=== PATIENT | female | born 1955 ===

== ENCOUNTER 2017-10-03 09:51 | Day surgery (SDC) | payer MEDICAID ==
[2017-10-03 10:23] VITALS: BMI 25.7
[2017-10-03] MEDS ORDERED: Lactated Ringer's 1,000 ML IV ONE (12:10)
[2017-10-03] MEDS ORDERED: Propofol 10 mg/ml Inj (20 ML) ONE (12:12)
[2017-10-03 13:36] VITALS: TEMP 98
[2017-10-03 14:05] VITALS: BP 158/78; PULSE 51; RESP 18; O2SAT 100
== END 2017-10-03 14:03 | disposition home or self-care (01) ==
LOC: C.ENDO 09:51
PROVIDERS: ATTEND Internal Medicine Gastroenterology
DX: K29.50 Unspecified chronic gastritis without bleeding (principal); Z12.11 Encounter for screening for malignant neoplasm of colon; K31.89 Other diseases of stomach and duodenum; D12.2 Benign neoplasm of ascending colon; K64.0 First degree hemorrhoids
CPT/HCPCS: 43239; 45380; 45385; 88305; 88313; 88342; J2001; J2704; J3010; J7120

== ENCOUNTER 2017-10-08 12:41 | Emergency (ER) | payer MEDICAID ==
[2017-10-08 12:41] VITALS: BMI 25.7
[2017-10-08 14:46] LABS: BASO % 0.6 % (0.0-2.0); EOS % 0.4 % (0.0-4.0); HEMOGLOBIN 14.4 g/dL (11.0-16.0); LYMPH # 2.6 K/uL (1.0-4.3); LYMPH % 37.4 % (20.0-40.0); MEAN CELL VOLUME 89.4 fL (81.0-99.0); MEAN CORPUSCULAR HEMOGLOBIN 30.6 pg (27.0-31.0); MEAN CORPUSCULAR HGB CONC 34.2 g/dL (33.0-37.0); MEAN PLATELET VOLUME 9.8 fL (7.2-11.7); MONO # 0.6 K/uL (0.0-0.8); NEUT # 3.7 K/uL (1.8-7.0); NEUT % 53.6 % (50.0-75.0); NRBC % 0.1 % (0.0-2.0); RBC 4.7 Mil/uL (3.80-5.20); RED CELL DISTRIBUTION WIDTH 13.6 % (11.5-14.5)
--- NOTE | 2017-10-08 14:48 | CT ---
PROCEDURE: CT HEAD WITHOUT CONTRAST. HISTORY: headache, elevated BP COMPARISON: None available. TECHNIQUE: Axial computed tomography images were obtained through the head/brain without intravenous contrast. Radiation dose: Total exam DLP = 959.98 mGy-cm. This CT exam was performed using one or more of the following dose reduction techniques: Automated exposure control, adjustment of the mA and/or kV according to patient size, and/or use of iterative reconstruction technique. FINDINGS: HEMORRHAGE: No intracranial hemorrhage. BRAIN: No mass effect or edema. The whitehead-white matter differentiation appears intact. Please note that MRI with diffusion imaging is more sensitive in the detection of acute ischemic event. VENTRICLES: No hydrocephalus. CALVARIUM: Unremarkable. PARANASAL SINUSES: Unremarkable as visualized. No significant inflammatory changes. MASTOID AIR CELLS: Unremarkable as visualized. No inflammatory changes. OTHER FINDINGS: None. IMPRESSION: No acute intracranial pathology identified.
--- NOTE | 2017-10-08 14:53 | RAD ---
PROCEDURE: CHEST RADIOGRAPH, 1 VIEW HISTORY: CP COMPARISON: No prior study available for comparison. FINDINGS: LUNGS: Mild bibasilar atelectasis left greater than right. PLEURA: No pneumothorax or pleural fluid seen. CARDIOVASCULAR: Normal. OSSEOUS STRUCTURES: No significant abnormalities. VISUALIZED UPPER ABDOMEN: Normal. OTHER FINDINGS: None. IMPRESSION: Mild bibasilar atelectasis left.
[2017-10-08 14:55] LABS: INR 1.1; PROTHROMBIN TIME 11.8 SECONDS (9.7-12.2)
--- NOTE | 2017-10-08 14:56 | C.PDOC ---
History Of Present Illness 61-year-old female, presents to the emergency department with complaints of chest pressure and headache. Patient recently started seeing new doctor, who found her blood pressure to be elevated but did not start on any meds. 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 Denies nausea/vomiting, dizziness, shortness of breath, neck pain, trauma/injury or any other associated symptoms. No other complaints at this time. Time Seen by Provider: 10/08/17 13:10 Chief Complaint (Nursing): High Blood Pressure History Per: Patient History/Exam Limitations: no limitations Current Symptoms Are (Timing): Still Present Past Medical History Reviewed: Historical Data, Nursing Documentation, Vital Signs Vital Signs: Last Vital Signs Temp 98.1 F 10/08/17 13:05 Pulse 68 10/08/17 15:43 Resp 21 10/08/17 15:43 BP 140/70 10/08/17 15:43 Pulse Ox 97 10/08/17 15:48 - Medical History PMH: Arthritis (MILD AND GENERALIZED), Gastritis, HTN, Kidney Stones, Chronic Kidney Disease Denies: Colonic Polyps, Fractures, Seizures, Sleep Apnea, TIA Surgical History: Endoscopy, Family History: States: No Known Family Hx - Social History Hx Alcohol Use: No Hx Substance Use: No Review Of Systems Except As Marked, All Systems Reviewed And Found Negative. Constitutional: Negative for: Fever Cardiovascular: Negative for: Chest Pain, Palpitations, Edema, Light Headedness Respiratory: Negative for: Shortness of Breath Gastrointestinal: Negative for: Nausea, Vomiting Musculoskeletal: Negative for: Neck Pain, Back Pain Skin: Negative for: Rash Neurological: Positive for: Headache. Negative for: Weakness, Numbness, Dizziness Physical Exam - Physical Exam Appears: Non-toxic, No Acute Distress Skin: Warm, Dry, No Rash Head: Normacephalic Eye(s): bilateral: PERRL Nose: Normal Oral Mucosa: Moist Lips: Normal Appearing Neck: Normal ROM Chest: Symmetrical Cardiovascular: Rhythm Regular, No Murmur Respiratory: Normal Breath Sounds, No Accessory Muscle Use Extremity: Normal ROM, No Deformity, No Swelling Neurological/Psych: Oriented x3, Normal Speech ED Course And Treatment - Laboratory Results Result Diagrams: 10/08/17 14:41 10/08/17 14:41 ECG: Interpreted By Me, Viewed By Me ECG Rhythm: Sinus Rhythm, R BBB Rate From EC O2 Sat by Pulse Oximetry: 97 (RA) Pulse Ox Interpretation: Normal - Other Rad CXR X-Ray: Viewed By Me, Read By Radiologist Interpretation: Accession No. : [id number]. Patient Name / ID : SHAHAB ADKINS / [id number]. Exam Date : 10/08/2017 14:15:08 ( Approved ). Study Comment : Sex / Age : F / 61Y. Creator : Ugo Kennedy MD. Dictator : Ugo Kennedy MD. Ferryboat Operator : Plans Examiner : Ugo Kennedy MD. Approver2 : Report Date : 10/08/2017 14:52:00. My Comment : . PROCEDURE: CHEST RADIOGRAPH, 1 VIEW. HISTORY: CP. COMPARISON: No prior study available for comparison. FINDINGS: LUNGS: Mild bibasilar atelectasis left greater than right. PLEURA: No pneumothorax or pleural fluid seen. CARDIOVASCULAR: Normal. OSSEOUS STRUCTURES: No significant abnormalities. VISUALIZED UPPER ABDOMEN: Normal. OTHER FINDINGS: None. IMPRESSION: Mild bibasilar atelectasis left. - CT Scan/US CT HEAD Other Rad Studies (CT/US): Read By Radiologist, Radiology Report Reviewed CT/US Interpretation: Accession No. : [id number]. Patient Name / ID : SHAHAB ADKINS / [id number]. Exam Date : 10/08/2017 14:34:18 ( Approved ). Study Comment : Sex / Age : F / 61Y. Creator : Cait Manzo MD. Dictator : Cait Manzo MD. Ferryboat Operator : Plans Examiner : Cait Manzo MD. Approver2 : Report Date : 10/08/2017 14:46:16. My Comment : . PROCEDURE: CT HEAD WITHOUT CONTRAST. HISTORY: headache, elevated BP. COMPARISON: None available. TECHNIQUE: Axial computed tomography images were obtained through the head/brain without intravenous contrast. Radiation dose: Total exam DLP = 959.98 mGy-cm. This CT exam was performed using one or more of the following dose reduction techniques: Automated exposure control, adjustment of the mA and/or kV according to patient size, and/or use of iterative reconstruction technique. FINDINGS: HEMORRHAGE: No intracranial hemorrhage. BRAIN: No mass effect or edema. The whitehead-white matter differentiation appears intact. Please note that MRI with diffusion imaging is more sensitive in the detection of acute ischemic event. VENTRICLES: No hydrocephalus. CALVARIUM: Unremarkable. PARANASAL SINUSES: Unremarkable as visualized. No significant inflammatory changes. MASTOID AIR CELLS: Unremarkable as visualized. No inflammatory changes. OTHER FINDINGS: None. IMPRESSION: No acute intracranial pathology identified. Progress Note: Case was d/w who accepted patient to [facility] for observation. Medical Decision Making Medical Decision Making: Plan: * CT Head * EKG * Labs * Chest X-Ray * Hydralazine, Aspirin * UA * Reassess and Disposition Disposition - Disposition Disposition: HOSPITALIZED Disposition Time: 15:46 Condition: FAIR - Clinical Impression Clinical Impression: Hypertension, Headache, Chest pressure - Scribe Statement The provider has reviewed the documentation as recorded by the Scribe (Juan Miguel Pop) All medical record entries made by the Scribe were at my direction and personally dictated by me. I have reviewed the chart and agree that the record accurately reflects my personal performance of the history, physical exam, medical decision making, and the department course for this patient. I have also personally directed, reviewed, and agree with the discharge instructions and disposition. Decision To Admit - Pt Status Changed To: Hospital Disposition Of: Observation - . Bed Request Type: Telemetry Admitting Physician: Angelo De León Patient Diagnosis: Hypertension, Headache, Chest pressure
[2017-10-08 15:03] LABS: ALB/GLOB RATIO 1.1 (1.0-2.1); ALT/SGPT 61 U/L (9-52); AST/SGOT 44 U/L (14-36); BLOOD UREA NITROGEN 10 mg/dL (7-17); CALCIUM 8.9 mg/dl (8.6-10.4); GFR AFRICAN-AMERICAN > 60; GFR NON-AFRICAN AMERICAN > 60
[2017-10-08 15:13] LABS: CK-MB 0.36 ng/mL (0.0-3.38)
[2017-10-08 15:22] LABS: URINE AMORPHOUS SEDIMENT RARE /ul (<OCC); URINE BACTERIA RARE (<OCC); URINE BILIRUBIN NEGATIVE (NEGATIVE); URINE BLOOD NEGATIVE (NEGATIVE); URINE CLARITY Hazy (Clear); URINE COLOR Red (YELLOW); URINE GLUCOSE (UA) 2+ mg/dL (Normal); URINE LEUKOCYTE ESTERASE TRACE Leu/uL (Negative); URINE NITRATE NEGATIVE (NEGATIVE); URINE PROTEIN NEGATIVE (NEGATIVE); URINE UROBILINOGEN NORMAL mg/dL (0.2-1.0)
[2017-10-08] MEDS ORDERED: Potassium Chloride 20 mEq ER Tab PO ONE ×2 (16:37→17:23)
--- NOTE | 2017-10-08 18:32 | CP.PCM.HP ---
<Tracey Wilhelm - Last Filed: 10/08/17 18:43> History of Present Illness - History of Present Illness History of Present Illness: Various Exceptionalities Teacher CC: "Hypertension Urgency" HPI: Patient is a 61 year old [place]er-speaking female who presents for hypertension. Patient went to her [facility]CH[facility]ECT to get a routine pap smear today, was noted to have high blood pressure with systolic in the 190s, and was referred to the emergency department. Patient states that she has recently been having headaches and chest pain. She has a headache at present but denies chest pain right now. Regarding her headaches, patient states that she has had headaches for the last 6 months, 6/10 at worse, intermittent, on the side and back of her head. 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 She saw her PMD last month and was noted to have high blood pressure, but states that she was not given any medication or recommendations to lower her blood pressure. Regarding chest pain, patient states that she has had the chest pain for some time, approximately every 15 days, that originally would come and go quickly and more recently last for 3-4 minutes when it comes on. The pain feels like her chest is being pressed against a wall, starts in the center of her chest and radiates across the top of her chest wall, to her shoulders and to her jaw. Pain usually comes on after she eats bread, rice, and soda. Pain is usually relieved by drinking cold water. She states that she feels tired and worn out the day after experiencing this pain. In addition, patient also notes some abdominal pain in the LLQ which has been going on x 1 year, described as constant, that is made worse with milk products like cheese. She last ate at 8am today (coffee with soy milk and bread). Last bowel movement was normal, at 5pm yesterday. Otherwise, patient denies blurry vision, fever, chills, dizziness, SOB, palpitations, urinary changes/hematuria, nausea, vomiting, diarrhea, constipation, hematochezia/melena, leg swelling/pain. Preventative screening: patient saw GI Dr. Serrano 5 days ago and had a normal endoscopy/colonoscopy. Last stress test was 15 years ago and normal. PMD: Melany Leon GI: Michael Serrano Inspector Balance Wheel Motion: none PMH: kidney stones, sciatica. 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 absent: Chills, Fever, Night Sweats, Weakness, Other - EENT Eyes: absent: Blurred Vision, Change in Vision Ears: absent: Dizziness Nose/Mouth/Throat: absent: Nasal Congestion, Nasal Discharge - Cardiovascular Cardiovascular: Chest Pain. absent: Chest Pain at Rest, Chest Pain with Activity, Diaphoresis, Dyspnea, Leg Edema, Orthopnea, Palpitations, Pedal Edema - Respiratory Respiratory: absent: Cough, Dyspnea, Wheezing, Snoring - Gastrointestinal Gastrointestinal: absent: Abdominal Pain, Constipation, Diarrhea, Hematemesis, Hematochezia, Nausea, Vomiting - Neurological Neurological: absent: Weakness - Psychiatric Psychiatric: absent: Anxiety - Endocrine Endocrine: absent: Fatigue, Palpitations Past Patient History - Past Medical History & Family History Past Medical History?: Yes - Past Social History Smoking Status: Never Smoked - CARDIAC Hx Hypertension: Yes - PULMONARY Hx Sleep Apnea: No - NEUROLOGICAL Hx Seizures: No Hx Transient Ischemic Attacks (TIA): No - HEENT Hx HEENT Problems: No - RENAL Hx Chronic Kidney Disease: Yes Hx Kidney Stones: Yes - ENDOCRINE/METABOLIC Hx Endocrine Disorders: No - HEMATOLOGICAL/ONCOLOGICAL Hx Blood Transfusions: No - INTEGUMENTARY Hx Dermatological Problems: No - MUSCULOSKELETAL/RHEUMATOLOGICAL Hx Arthritis: Yes (MILD AND GENERALIZED) Hx Fractures: No - GASTROINTESTINAL Hx Gastritis: Yes - GENITOURINARY/GYNECOLOGICAL Hx Genitourinary Disorders: Yes - PSYCHIATRIC Hx Substance Use: No - SURGICAL HISTORY Hx Surgeries: Yes Hx Section: Yes Hx Hysterectomy: Yes - ANESTHESIA Hx Anesthesia: Yes Hx Anesthesia Reactions: No Hx Malignant Hyperthermia: No Meds Allergies/Adverse Reactions: Allergies Allergy/AdvReac Type Severity Reaction Status Date / Time acetaminophen Allergy Severe PALPATIONS, Verified 10/08/17 13:07 REDDNESS Physical Exam - Constitutional Appears: No Acute Distress - Head Exam Head Exam: ATRAUMATIC, NORMAL INSPECTION - Eye Exam Eye Exam: EOMI, Normal appearance - ENT Exam ENT Exam: Mucous Membranes Moist - Respiratory Exam Respiratory Exam: Clear to Auscultation Bilateral, NORMAL BREATHING PATTERN. absent: Rales, Rhonchi, Wheezes, Respiratory Distress, Stridor - Cardiovascular Exam Cardiovascular Exam: REGULAR RHYTHM, +S1, +S2 - GI/Abdominal Exam GI & Abdominal Exam: Normal Bowel Sounds, Soft. absent: Distended, Firm, Guarding, Tenderness - Extremities Exam Extremities exam: Positive for: normal inspection. Negative for: calf tenderness, pedal edema, tenderness - Neurological Exam Neurological exam: Alert, Oriented x3 - Psychiatric Exam Psychiatric exam: Normal Affect - Skin Skin Exam: Normal Color Results - Vital Signs Recent Vital Signs: Last Vital Signs Temp 98.7 F 10/08/17 17:29 Pulse 71 10/08/17 17:30 Resp 16 10/08/17 17:30 BP 156/78 H 10/08/17 17:30 Pulse Ox 97 10/08/17 17:30 - Labs Result Diagrams: 10/08/17 14:41 10/08/17 14:41 Labs: Laboratory Results - last 24 hr 10/08/17 10/08/17 10/08/17 14:41 14:41 14:41 WBC 7.0 RBC 4.70 Hgb 14.4 Hct 42.0 MCV 89.4 MCH 30.6 MCHC 34.2 RDW 13.6 Plt Count 165 MPV 9.8 Neut % (Auto) 53.6 Lymph % (Auto) 37.4 [place] % (Auto) 8.0 Eos % (Auto) 0.4 Baso % (Auto) 0.6 Neut # (Auto) 3.7 Lymph # (Auto) 2.6 [place] # (Auto) 0.6 Eos # (Auto) 0.0 Baso # (Auto) 0.0 PT 11.8 INR 1.1 APTT 32 Sodium 139 Potassium 3.4 L Chloride 105 Carbon Dioxide 26 Anion Gap 11 BUN 10 Creatinine 0.4 L Est GFR ( Amer) > 60 Est GFR (Non-Af Amer) > 60 Random Glucose 112 H Calcium 8.9 Total Bilirubin 0.7 AST 44 H ALT 61 H Alkaline Phosphatase 129 H Total Creatine Kinase 55 CK-MB (Mass) 0.36 Troponin I < 0.0120 Total Protein 7.6 Albumin 4.0 Globulin 3.6 Albumin/Globulin Ratio 1.1 Urine Color Urine Clarity Urine pH Ur Specific [place] Urine Protein Urine Glucose (UA) Urine Ketones Urine Blood Urine Nitrate Urine Bilirubin Urine Urobilinogen Ur Leukocyte Esterase Urine WBC (Auto) Urine RBC (Auto) Amorphous Sediment Urine Bacteria 10/08/17 15:08 WBC RBC Hgb Hct MCV MCH MCHC RDW Plt Count MPV Neut % (Auto) Lymph % (Auto) [place] % (Auto) Eos % (Auto) Baso % (Auto) Neut # (Auto) Lymph # (Auto) [place] # (Auto) Eos # (Auto) Baso # (Auto) PT INR APTT Sodium Potassium Chloride Carbon Dioxide Anion Gap BUN Creatinine Est GFR ( Amer) Est GFR (Non-Af Amer) Random Glucose Calcium Total Bilirubin AST ALT Alkaline Phosphatase Total Creatine Kinase CK-MB (Mass) Troponin I Total Protein Albumin Globulin Albumin/Globulin Ratio Urine Color Red Urine Clarity Hazy Urine pH 7.0 Ur Specific [place] 1.014 Urine Protein Negative Urine Glucose (UA) 2+ H Urine Ketones Negative Urine Blood Negative Urine Nitrate Negative Urine Bilirubin Negative Urine Urobilinogen Normal Ur Leukocyte Esterase Trace Urine WBC (Auto) 8 H Urine RBC (Auto) 1 Amorphous Sediment Rare H Urine Bacteria Rare Assessment & Plan (1) Hypertensive urgency Assessment and Plan: Medications: * Hydralazine 10mg IV Q6H PRN ( SBP>160mmHg) * Norvasc 10mg PO daily * Cozaar 50mg PO daily * Monitor with vital signs Status: Acute (2) Chest pressure Assessment and Plan: On admission: * No ST elevation on the EKG, Troponin x1 negative, F/U troponin X2 * F/U Lipid panel, HbgA1C, TSH * F/u echocardiogram Medications/Management: * Aspirin 81mg PO daily * Crestor 2.5mg PO HS Status: Acute (3) Hypokalemia Assessment and Plan: On admission: * K+: 3.4 * K-dur 40mreq oncw * Monitor with am labs Status: Acute (4) Prophylactic measure Assessment and Plan: GI: Pepcid 20mg PO daily DVT: Lovenox 30mg SC daily, SCDs All plans and management discussed with attending, Dr. De León Status: Acute <GenetAngelo - Last Filed: 10/09/17 07:28> Results - Vital Signs Recent Vital Signs: Last Vital Signs Temp 98.7 F 10/08/17 17:29 Pulse 76 10/09/17 05:04 Resp 22 10/09/17 05:04 BP 117/57 L 10/09/17 05:04 Pulse Ox 96 10/09/17 05:04 - Labs Result Diagrams: 10/09/17 04:59 10/09/17 04:59 Labs: Laboratory Results - last 24 hr 10/08/17 10/08/17 10/08/17 14:41 14:41 14:41 WBC 7.0 RBC 4.70 Hgb 14.4 Hct 42.0 MCV 89.4 MCH 30.6 MCHC 34.2 RDW 13.6 Plt Count 165 MPV 9.8 Neut % (Auto) 53.6 Lymph % (Auto) 37.4 [place] % (Auto) 8.0 Eos % (Auto) 0.4 Baso % (Auto) 0.6 Neut # (Auto) 3.7 Lymph # (Auto) 2.6 [place] # (Auto) 0.6 Eos # (Auto) 0.0 Baso # (Auto) 0.0 PT 11.8 INR 1.1 APTT 32 Sodium 139 Potassium 3.4 L Chloride 105 Carbon Dioxide 26 Anion Gap 11 BUN 10 Creatinine 0.4 L Est GFR ( Amer) > 60 Est GFR (Non-Af Amer) > 60 Random Glucose 112 H Calcium 8.9 Phosphorus Magnesium Total Bilirubin 0.7 AST 44 H ALT 61 H Alkaline Phosphatase 129 H Total Creatine Kinase 55 CK-MB (Mass) 0.36 Troponin I < 0.0120 Total Protein 7.6 Albumin 4.0 Globulin 3.6 Albumin/Globulin Ratio 1.1 Triglycerides Cholesterol LDL Cholesterol Direct HDL Cholesterol TSH 3rd Generation Urine Color Urine Clarity Urine pH Ur Specific [place] Urine Protein Urine Glucose (UA) Urine Ketones Urine Blood Urine Nitrate Urine Bilirubin Urine Urobilinogen Ur Leukocyte Esterase Urine WBC (Auto) Urine RBC (Auto) Amorphous Sediment Urine Bacteria Urine Opiates Screen Urine Methadone Screen Ur Barbiturates Screen Ur Phencyclidine Scrn Ur Amphetamines Screen U Benzodiazepines Scrn U Oth Cocaine Metabols U Cannabinoids Screen 10/08/17 10/08/17 10/08/17 15:08 19:31 21:21 WBC RBC Hgb Hct MCV MCH MCHC RDW Plt Count MPV Neut % (Auto) Lymph % (Auto) [place] % (Auto) Eos % (Auto) Baso % (Auto) Neut # (Auto) Lymph # (Auto) [place] # (Auto) Eos # (Auto) Baso # (Auto) PT INR APTT Sodium Potassium Chloride Carbon Dioxide Anion Gap BUN Creatinine Est GFR ( Amer) Est GFR (Non-Af Amer) Random Glucose Calcium Phosphorus Magnesium Total Bilirubin AST ALT Alkaline Phosphatase Total Creatine Kinase CK-MB (Mass) Troponin I 0.0210 Total Protein Albumin Globulin Albumin/Globulin Ratio Triglycerides Cholesterol LDL Cholesterol Direct HDL Cholesterol TSH 3rd Generation Urine Color Red Urine Clarity Hazy Urine pH 7.0 Ur Specific [place] 1.014 Urine Protein Negative Urine Glucose (UA) 2+ H Urine Ketones Negative Urine Blood Negative Urine Nitrate Negative Urine Bilirubin Negative Urine Urobilinogen Normal Ur Leukocyte Esterase Trace Urine WBC (Auto) 8 H Urine RBC (Auto) 1 Amorphous Sediment Rare H Urine Bacteria Rare Urine Opiates Screen Negative Urine Methadone Screen Negative Ur Barbiturates Screen Negative Ur Phencyclidine Scrn Negative Ur Amphetamines Screen Negative U Benzodiazepines Scrn Negative U Oth Cocaine Metabols Negative U Cannabinoids Screen Negative 10/09/17 10/09/17 04:59 04:59 WBC 7.7 RBC 4.66 Hgb 14.3 Hct 42.0 MCV 90.1 MCH 30.6 MCHC 34.0 RDW 14.1 Plt Count 185 MPV 9.8 Neut % (Auto) 49.7 L Lymph % (Auto) 40.9 H [place] % (Auto) 7.9 Eos % (Auto) 0.8 Baso % (Auto) 0.7 Neut # (Auto) 3.8 Lymph # (Auto) 3.2 [place] # (Auto) 0.6 Eos # (Auto) 0.1 Baso # (Auto) 0.1 PT INR APTT Sodium 138 Potassium 3.8 Chloride 106 Carbon Dioxide 22 Anion Gap 14 BUN 12 Creatinine 0.4 L Est GFR ( Amer) > 60 Est GFR (Non-Af Amer) > 60 Random Glucose 117 H Calcium 8.6 Phosphorus 4.2 Magnesium 1.8 Total Bilirubin 0.8 AST 33 ALT 46 Alkaline Phosphatase 130 H Total Creatine Kinase CK-MB (Mass) Troponin I < 0.0120 Total Protein 7.2 Albumin 3.7 Globulin 3.5 Albumin/Globulin Ratio 1.1 Triglycerides 147 Cholesterol 201 H LDL Cholesterol Direct 131 H HDL Cholesterol 46 TSH 3rd Generation 4.64 Urine Color Urine Clarity Urine pH Ur Specific [place] Urine Protein Urine Glucose (UA) Urine Ketones Urine Blood Urine Nitrate Urine Bilirubin Urine Urobilinogen Ur Leukocyte Esterase Urine WBC (Auto) Urine RBC (Auto) Amorphous Sediment Urine Bacteria Urine Opiates Screen Urine Methadone Screen Ur Barbiturates Screen Ur Phencyclidine Scrn Ur Amphetamines Screen U Benzodiazepines Scrn U Oth Cocaine Metabols U Cannabinoids Screen Attending/Attestation - Attestation I have personally seen and examined this patient.: Yes I have fully participated in the care of the patient.: Yes I have reviewed all pertinent clinical information: Yes Notes (Text): Medical attending: Patient was seen and examined by me Agree with the above note by the resident The patient was not in acute distress when I saw her yesterday. However we did see the elevated systolic BPs. She had elevated systolic BPs seen in at the [facility] office and then sent here due to that. She in the ER received IV hydralazine 10 but the BP was still elevated and she reported some headache. CT scan was normal. She also reported chest pain earlier in the day as well while at [facility] office The patient just started seeing physician now as she never had insurance before. So she is now seeing phsycians Will continue with the IV hydralzine and also give orders for norvasc and also ARB thank you Angelo De León
[2017-10-08 19:52] LABS: BARBITURATES, UR NEGATIVE (NEGATIVE); BENZODIAZEPINES, UR NEGATIVE (NEGATIVE); OPIATES, UR NEGATIVE (NEGATIVE); PHENCYCLIDINE, UR NEGATIVE (NEGATIVE)
[2017-10-08] MEDS ORDERED: Rosuvastatin Calcium 2.5 mg Tab PO SCH (22:00)
[2017-10-09 05:11] LABS: BASO # 0.1 K/uL (0.0-0.2); BASO % 0.7 % (0.0-2.0); EOS # 0.1 K/uL (0.0-0.7); EOS % 0.8 % (0.0-4.0); HEMOGLOBIN 14.3 g/dL (11.0-16.0); LYMPH # 3.2 K/uL (1.0-4.3); LYMPH % 40.9 % (20.0-40.0); MEAN CELL VOLUME 90.1 fL (81.0-99.0); MEAN CORPUSCULAR HEMOGLOBIN 30.6 pg (27.0-31.0); MEAN PLATELET VOLUME 9.8 fL (7.2-11.7); MONO # 0.6 K/uL (0.0-0.8); MONO % 7.9 % (0.0-10.0); NEUT # 3.8 K/uL (1.8-7.0); NEUT % 49.7 % (50.0-75.0); NRBC % 0.1 % (0.0-2.0); RBC 4.66 Mil/uL (3.80-5.20); RED CELL DISTRIBUTION WIDTH 14.1 % (11.5-14.5); WHITE BLOOD COUNT 7.7 K/uL (4.8-10.8)
[2017-10-09 05:27] LABS: LDL CHOLESTEROL 131 mg/dL (0-129)
[2017-10-09 05:58] LABS: ALB/GLOB RATIO 1.1 (1.0-2.1); ALBUMIN 3.7 g/dL (3.5-5.0); ALT/SGPT 46 U/L (9-52); AST/SGOT 33 U/L (14-36); BLOOD UREA NITROGEN 12 mg/dL (7-17); CALCIUM 8.6 mg/dl (8.6-10.4); GFR AFRICAN-AMERICAN > 60; GFR NON-AFRICAN AMERICAN > 60; HDL CHOLESTEROL 46 mg/dL (30-70); MAGNESIUM 1.8 mg/dL (1.6-2.3)
[2017-10-09 08:24] VITALS: RESP 20
[2017-10-09] MEDS ORDERED: Enoxaparin 30 mg Syringe SC SCH (10:00)
--- NOTE | 2017-10-09 11:49 | CP.PCM.DIS ---
<Tracey Wilhelm E - Last Filed: 10/09/17 13:19> Provider - Provider Date of Admission: 10/08/17 15:44 Attending physician: Angelo De León DO Time Spent in preparation of Discharge (in minutes): 35 Diagnosis - Discharge Diagnosis (1) Hypertensive urgency Status: Acute (2) Chest pressure Status: Acute (3) Hypokalemia Status: Acute (4) Prophylactic measure Status: Acute Hospital Course - Lab Results Lab Results: Most Recent Lab Values WBC 7.7 K/uL (4.8-10.8) 10/09/17 04:59 RBC 4.66 Mil/uL (3.80-5.20) 10/09/17 04:59 Hgb 14.3 g/dL (11.0-16.0) 10/09/17 04:59 Hct 42.0 % (34.0-47.0) 10/09/17 04:59 MCV 90.1 fL (81.0-99.0) 10/09/17 04:59 MCH 30.6 pg (27.0-31.0) 10/09/17 04:59 MCHC 34.0 g/dL (33.0-37.0) 10/09/17 04:59 RDW 14.1 % (11.5-14.5) 10/09/17 04:59 Plt Count 185 K/uL (130-400) 10/09/17 04:59 MPV 9.8 fL (7.2-11.7) 10/09/17 04:59 Neut % (Auto) 49.7 % (50.0-75.0) L 10/09/17 04:59 Lymph % (Auto) 40.9 % (20.0-40.0) H 10/09/17 04:59 Swift % (Auto) 7.9 % (0.0-10.0) 10/09/17 04:59 Eos % (Auto) 0.8 % (0.0-4.0) 10/09/17 04:59 Baso % (Auto) 0.7 % (0.0-2.0) 10/09/17 04:59 Neut # (Auto) 3.8 K/uL (1.8-7.0) 10/09/17 04:59 Lymph # (Auto) 3.2 K/uL (1.0-4.3) 10/09/17 04:59 Swift # (Auto) 0.6 K/uL (0.0-0.8) 10/09/17 04:59 Eos # (Auto) 0.1 K/uL (0.0-0.7) 10/09/17 04:59 Baso # (Auto) 0.1 K/uL (0.0-0.2) 10/09/17 04:59 PT 11.8 SECONDS (9.7-12.2) 10/08/17 14:41 INR 1.1 10/08/17 14:41 APTT 32 SECONDS (21-34) 10/08/17 14:41 Sodium 138 mmol/L (132-148) 10/09/17 04:59 Potassium 3.8 mmol/L (3.6-5.2) 10/09/17 04:59 Chloride 106 mmol/L (98-107) 10/09/17 04:59 Carbon Dioxide 22 mmol/L (22-30) 10/09/17 04:59 Anion Gap 14 (10-20) 10/09/17 04:59 BUN 12 mg/dL (7-17) 10/09/17 04:59 Creatinine 0.4 mg/dL (0.7-1.2) L 10/09/17 04:59 Est GFR ( Amer) > 60 10/09/17 04:59 Est GFR (Non-Af Amer) > 60 10/09/17 04:59 Random Glucose 117 mg/dL (65-105) H 10/09/17 04:59 Hemoglobin A1c 6.4 % (4.2-6.5) 10/09/17 04:59 Calcium 8.6 mg/dl (8.6-10.4) 10/09/17 04:59 Phosphorus 4.2 mg/dL (2.5-4.5) 10/09/17 04:59 Magnesium 1.8 mg/dL (1.6-2.3) 10/09/17 04:59 Total Bilirubin 0.8 mg/dL (0.2-1.3) 10/09/17 04:59 AST 33 U/L (14-36) 10/09/17 04:59 ALT 46 U/L (9-52) 10/09/17 04:59 Alkaline Phosphatase 130 U/L (38-126) H 10/09/17 04:59 Total Creatine Kinase 55 U/L (30-135) 10/08/17 14:41 CK-MB (Mass) 0.36 ng/mL (0.0-3.38) 10/08/17 14:41 Troponin I < 0.0120 ng/mL (0.00-0.120) 10/09/17 04:59 Total Protein 7.2 g/dL (6.3-8.3) 10/09/17 04:59 Albumin 3.7 g/dL (3.5-5.0) 10/09/17 04:59 Globulin 3.5 gm/dL (2.2-3.9) 10/09/17 04:59 Albumin/Globulin Ratio 1.1 (1.0-2.1) 10/09/17 04:59 Triglycerides 147 mg/dL (0-149) 10/09/17 04:59 Cholesterol 201 mg/dL (0-199) H 10/09/17 04:59 LDL Cholesterol Direct 131 mg/dL (0-129) H 10/09/17 04:59 HDL Cholesterol 46 mg/dL (30-70) 10/09/17 04:59 TSH 3rd Generation 4.64 mIU/L (0.46-4.68) 10/09/17 04:59 Urine Color Red (YELLOW) 10/08/17 15:08 Urine Clarity Hazy (Clear) 10/08/17 15:08 Urine pH 7.0 (5.0-8.0) 10/08/17 15:08 Ur Specific Chapin 1.014 (1.003-1.030) 10/08/17 15:08 Urine Protein Negative mg/dL (NEGATIVE) 10/08/17 15:08 Urine Glucose (UA) 2+ mg/dL (Normal) H 10/08/17 15:08 Urine Ketones Negative mg/dL (NEGATIVE) 10/08/17 15:08 Urine Blood Negative (NEGATIVE) 10/08/17 15:08 Urine Nitrate Negative (NEGATIVE) 10/08/17 15:08 Urine Bilirubin Negative (NEGATIVE) 10/08/17 15:08 Urine Urobilinogen Normal mg/dL (0.2-1.0) 10/08/17 15:08 Ur Leukocyte Esterase Trace Sukhwinder/uL (Negative) 10/08/17 15:08 Urine WBC (Auto) 8 /hpf (0-5) H 10/08/17 15:08 Urine RBC (Auto) 1 /hpf (0-3) 10/08/17 15:08 Amorphous Sediment Rare /ul (<OCC) H 10/08/17 15:08 Urine Bacteria Rare (<OCC) 10/08/17 15:08 Urine Opiates Screen Negative (NEGATIVE) 10/08/17 19:31 Urine Methadone Screen Negative (NEGATIVE) 10/08/17 19:31 Ur Barbiturates Screen Negative (NEGATIVE) 10/08/17 19:31 Ur Phencyclidine Scrn Negative (NEGATIVE) 10/08/17 19:31 Ur Amphetamines Screen Negative (NEGATIVE) 10/08/17 19:31 U Benzodiazepines Scrn Negative (NEGATIVE) 10/08/17 19:31 U Oth Cocaine Metabols Negative (NEGATIVE) 10/08/17 19:31 U Cannabinoids Screen Negative (NEGATIVE) 10/08/17 19:31 - Hospital Course Hospital Course: HPI ( As per admission): Patient is a 61 year old French-speaking female who presents for hypertension. Patient went to her EMS MANAGER to get a routine pap smear today, was noted to have high blood pressure with systolic in the 190s, and was referred to the emergency department. Patient states that she has recently been having headaches and chest pain. She has a headache at present but denies chest pain right now. Regarding her headaches, patient states that she has had headaches for the last 6 months, 6/10 at worse, intermittent, on the side and back of her head. 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 She saw her PMD last month and was noted to have high blood pressure, but states that she was not given any medication or recommendations to lower her blood pressure. Regarding chest pain, patient states that she has had the chest pain for some time, approximately every 15 days, that originally would come and go quickly and more recently last for 3-4 minutes when it comes on. The pain feels like her chest is being pressed against a wall, starts in the center of her chest and radiates across the top of her chest wall, to her shoulders and to her jaw. Pain usually comes on after she eats bread, rice, and soda. Pain is usually relieved by drinking cold water. She states that she feels tired and worn out the day after experiencing this pain. In addition, patient also notes some abdominal pain in the LLQ which has been going on x 1 year, described as constant, that is made worse with milk products like cheese. She last ate at 8am today (coffee with soy milk and bread). Last bowel movement was normal, at 5pm yesterday. Otherwise, patient denies blurry vision, fever, chills, dizziness, SOB, palpitations, urinary changes/hematuria, nausea, vomiting, diarrhea, constipation, hematochezia/melena, leg swelling/pain. Preventative screening: patient saw GI Dr. Serrano 5 days ago and had a normal endoscopy/colonoscopy. Last stress test was 15 years ago and normal. Hospital course: Patient was admitted with the diagnosis of hypertensive urgency. Patient was managed with appropriate medications with pertinent labs ordered. Patient did well over the course of her hospital stay. Patient's symptoms improved significantly and remained stable with no acute issues. Patient was cleared for discharge with appropriate prescriptions given and discharge instructions. Patient's blood pressure remained stable with medication during her hospital course. Patient is to please follow up with her PMD, Dr. Leon within 1 week of discharge. Pertinent image/Labs: Head CT (10/08/17): No acute intracranial pathology identified. F/u Echocardiogram Troponin: Negative X3 Lipid Panel: TGL: 147, Cholesterol: 201, LDL: 131, HDL: 46 Hemoglobin A1C: 6.5 TSH: WNL This is a brief summary of event. For complete course, please refer to the medical records Discharge Exam - Head Exam Head Exam: ATRAUMATIC, NORMAL INSPECTION - Eye Exam Eye Exam: EOMI, Normal appearance - ENT Exam ENT Exam: Mucous Membranes Moist - Respiratory Exam Respiratory Exam: Clear to PA & Lateral, NORMAL BREATHING PATTERN. absent: Chest Wall Tenderness, Prolonged Expiratory Phase, Respiratory Distress, Stridor - Cardiovascular Exam Cardiovascular Exam: REGULAR RHYTHM, +S1, +S2 - GI/Abdominal Exam GI & Abdominal Exam: Normal Bowel Sounds, Soft. absent: Distended, Firm, Guarding, Tenderness - Extremities Exam Extremities exam: normal inspection - Back Exam Back exam: absent: CVA tenderness (L), CVA tenderness (R) - Neurological Exam Neurological exam: Alert, Oriented x3 - Psychiatric Exam Psychiatric exam: Normal Affect, Normal Mood - Skin Skin Exam: Normal Color Discharge Plan - Follow Up Plan Condition: FAIR Disposition: HOME/ ROUTINE Additional Instructions: Please discharge patient home as she is medically stable Please start the following new medications: 1. Cozaar 50mg PO dailly (Please take by mouth once a day at breakfast) 2. Norvasc 10mg PO daily (Please take by mouth once a day at breakfast) 3. Aspirin 81mg PO daily ( Please once a day by mouth at breakfast) 4. Lipitor 10mg PO daily HS ( Please take once a day by mouth at dinner) Please check your blood pressure before taking your medications, please do not take with SBP> 125 Your hemoglobin A1C: 6.5, please decrease sugary foods and beverages, such as white bread, rice ( arroz), SODA, juices. Please see a sewing machine maintenance mechanic outpatient. Please follow up with your PMD, Dr. Leon in 1-2 weeks of discharge Please request a ext js developer from for possible stress test [facility] call [facility] to follow uo your echocardiogram result Please return if your symptoms resumes such as headache, blurry vision, chest pain, SOB, palpitations, nausea, vomiting, dizziness or elevated blood pressure not controlled by your medications. <Angelo De León - Last Filed: 10/09/17 15:04> Provider - Provider Date of Admission: 10/08/17 15:44 Attending physician: Angelo De León, DO Hospital Course - Lab Results Lab Results: Most Recent Lab Values WBC 7.7 K/uL (4.8-10.8) 10/09/17 04:59 RBC 4.66 Mil/uL (3.80-5.20) 10/09/17 04:59 Hgb 14.3 g/dL (11.0-16.0) 10/09/17 04:59 Hct 42.0 % (34.0-47.0) 10/09/17 04:59 MCV 90.1 fL (81.0-99.0) 10/09/17 04:59 MCH 30.6 pg (27.0-31.0) 10/09/17 04:59 MCHC 34.0 g/dL (33.0-37.0) 10/09/17 04:59 RDW 14.1 % (11.5-14.5) 10/09/17 04:59 Plt Count 185 K/uL (130-400) 10/09/17 04:59 MPV 9.8 fL (7.2-11.7) 10/09/17 04:59 Neut % (Auto) 49.7 % (50.0-75.0) L 10/09/17 04:59 Lymph % (Auto) 40.9 % (20.0-40.0) H 10/09/17 04:59 Swift % (Auto) 7.9 % (0.0-10.0) 10/09/17 04:59 Eos % (Auto) 0.8 % (0.0-4.0) 10/09/17 04:59 Baso % (Auto) 0.7 % (0.0-2.0) 10/09/17 04:59 Neut # (Auto) 3.8 K/uL (1.8-7.0) 10/09/17 04:59 Lymph # (Auto) 3.2 K/uL (1.0-4.3) 10/09/17 04:59 Swift # (Auto) 0.6 K/uL (0.0-0.8) 10/09/17 04:59 Eos # (Auto) 0.1 K/uL (0.0-0.7) 10/09/17 04:59 Baso # (Auto) 0.1 K/uL (0.0-0.2) 10/09/17 04:59 PT 11.8 SECONDS (9.7-12.2) 10/08/17 14:41 INR 1.1 10/08/17 14:41 APTT 32 SECONDS (21-34) 10/08/17 14:41 Sodium 138 mmol/L (132-148) 10/09/17 04:59 Potassium 3.8 mmol/L (3.6-5.2) 10/09/17 04:59 Chloride 106 mmol/L (98-107) 10/09/17 04:59 Carbon Dioxide 22 mmol/L (22-30) 10/09/17 04:59 Anion Gap 14 (10-20) 10/09/17 04:59 BUN 12 mg/dL (7-17) 10/09/17 04:59 Creatinine 0.4 mg/dL (0.7-1.2) L 10/09/17 04:59 Est GFR ( Amer) > 60 10/09/17 04:59 Est GFR (Non-Af Amer) > 60 10/09/17 04:59 Random Glucose 117 mg/dL (65-105) H 10/09/17 04:59 Hemoglobin A1c 6.4 % (4.2-6.5) 10/09/17 04:59 Calcium 8.6 mg/dl (8.6-10.4) 10/09/17 04:59 Phosphorus 4.2 mg/dL (2.5-4.5) 10/09/17 04:59 Magnesium 1.8 mg/dL (1.6-2.3) 10/09/17 04:59 Total Bilirubin 0.8 mg/dL (0.2-1.3) 10/09/17 04:59 AST 33 U/L (14-36) 10/09/17 04:59 ALT 46 U/L (9-52) 10/09/17 04:59 Alkaline Phosphatase 130 U/L (38-126) H 10/09/17 04:59 Total Creatine Kinase 55 U/L (30-135) 10/08/17 14:41 CK-MB (Mass) 0.36 ng/mL (0.0-3.38) 10/08/17 14:41 Troponin I < 0.0120 ng/mL (0.00-0.120) 10/09/17 04:59 Total Protein 7.2 g/dL (6.3-8.3) 10/09/17 04:59 Albumin 3.7 g/dL (3.5-5.0) 10/09/17 04:59 Globulin 3.5 gm/dL (2.2-3.9) 10/09/17 04:59 Albumin/Globulin Ratio 1.1 (1.0-2.1) 10/09/17 04:59 Triglycerides 147 mg/dL (0-149) 10/09/17 04:59 Cholesterol 201 mg/dL (0-199) H 10/09/17 04:59 LDL Cholesterol Direct 131 mg/dL (0-129) H 10/09/17 04:59 HDL Cholesterol 46 mg/dL (30-70) 10/09/17 04:59 TSH 3rd Generation 4.64 mIU/L (0.46-4.68) 10/09/17 04:59 Urine Color Red (YELLOW) 10/08/17 15:08 Urine Clarity Hazy (Clear) 10/08/17 15:08 Urine pH 7.0 (5.0-8.0) 10/08/17 15:08 Ur Specific Chapin 1.014 (1.003-1.030) 10/08/17 15:08 Urine Protein Negative mg/dL (NEGATIVE) 10/08/17 15:08 Urine Glucose (UA) 2+ mg/dL (Normal) H 10/08/17 15:08 Urine Ketones Negative mg/dL (NEGATIVE) 10/08/17 15:08 Urine Blood Negative (NEGATIVE) 10/08/17 15:08 Urine Nitrate Negative (NEGATIVE) 10/08/17 15:08 Urine Bilirubin Negative (NEGATIVE) 10/08/17 15:08 Urine Urobilinogen Normal mg/dL (0.2-1.0) 10/08/17 15:08 Ur Leukocyte Esterase Trace Sukhwinder/uL (Negative) 10/08/17 15:08 Urine WBC (Auto) 8 /hpf (0-5) H 10/08/17 15:08 Urine RBC (Auto) 1 /hpf (0-3) 10/08/17 15:08 Amorphous Sediment Rare /ul (<OCC) H 10/08/17 15:08 Urine Bacteria Rare (<OCC) 10/08/17 15:08 Urine Opiates Screen Negative (NEGATIVE) 10/08/17 19:31 Urine Methadone Screen Negative (NEGATIVE) 10/08/17 19:31 Ur Barbiturates Screen Negative (NEGATIVE) 10/08/17 19:31 Ur Phencyclidine Scrn Negative (NEGATIVE) 10/08/17 19:31 Ur Amphetamines Screen Negative (NEGATIVE) 10/08/17 19:31 U Benzodiazepines Scrn Negative (NEGATIVE) 10/08/17 19:31 U Oth Cocaine Metabols Negative (NEGATIVE) 10/08/17 19:31 U Cannabinoids Screen Negative (NEGATIVE) 10/08/17 19:31 Attending/Attestation - Attestation I have personally seen and examined this patient.: Yes I have fully participated in the care of the patient.: Yes I have reviewed all pertinent clinical information, including history, physical exam and plan: Yes Notes (Text): 10/09/17 15:04 Medical attending: The patient was seen and examined by me, I saw the patient with the medical representative. And I agree with the above note by the resident. The patient's blood pressure did come down earlier in the morning it was 114 systolic. Later on by the time I saw her just before noon time. Rising up to about 150 systolic. I asked the patient has she is feeling and she reported that overall she is feeling much better reach is no longer having headaches are the the chest sensations that she was having yesterday. So we'll discharge the patient with oral Norvasc as well as Cozaar. thank you Angelo De León
--- NOTE | 2017-10-09 12:29 | CARD ---
APPROVED REPORT EKG Measurement Heart [id number] CO [id number] <Conclusion> Normal sinus rhythm Right bundle branch block Abnormal ECG
--- NOTE | 2017-10-09 13:19 | CARD ---
APPROVED REPORT EXAM: Two-dimensional and M-mode echocardiogram with Doppler and color Doppler. Other Information Quality : GoodRhythm : INDICATION Chest Pain RISK FACTORS Hypertension 2D DIMENSIONS IVSd0.8 (0.7-1.1cm)LVDd4.4 (3.9-5.9cm) PWd0.9 (0.7-1.1cm)LVDs2.4 (2.5-4.0cm) FS (%) 45.8 %LVEF (%)77.4 (>50%) M-Mode DIMENSIONS RVDd1.73 (2.1-3.2cm)Left Atrium (MM)3.25 (2.5-4.0cm) IVSd1.25 (0.7-1.1cm)Aortic Root2.61 (2.2-3.7cm) LVDd4.92 (4.0-5.6cm)Aortic Cusp Exc.1.85 (1.5-2.0cm) PWd1.18 (0.7-1.1cm)FS (%) 54 % LVDs2.28 (2.0-3.8cm)LVEF (%)84 (>50%) Mitral Valve MV E Mielahhz28.1cm/sMV A Spjnxrsi14.2cm/sE/A ratio0.7 TDI E/Lateral E'0.0E/Medial E'0.0 Tricuspid Valve TR Peak [id number]/sTR Peak Gr.[id number] LEFT VENTRICLE The left ventricle is normal size. There is borderline concentric left ventricular hypertrophy. Left ventricle systolic function is normal. The Ejection Fraction is 65-70%. There is normal LV segmental wall motion. Transmitral Doppler flow pattern is Grade I-abnormal relaxation pattern. There is no ventricular septal defect visualized. RIGHT VENTRICLE The right ventricle is normal size. The right ventricular systolic function is normal. ATRIA The left atrium is mildly dilated. The right atrium size is normal. AORTIC VALVE The aortic valve is tri-cuspid. The aortic valve is normal in structure. No aortic regurgitation is present. There is no aortic valvular stenosis. MITRAL VALVE The mitral valve is normal in structure. There is no evidence of mitral valve prolapse. There is no mitral valve regurgitation noted. TRICUSPID VALVE The tricuspid valve is normal in structure. There is trace tricuspid regurgitation. Right ventricular systolic pressure is estimated at less than 30 mmHg. There is no pulmonary hypertension. PULMONIC VALVE The pulmonic valve is not well visualized. There is no pulmonic valvular regurgitation. GREAT VESSELS The aortic root is normal in size. The ascending aorta is normal in size. The IVC is normal in size and collapses >50% with inspiration. PERICARDIAL EFFUSION There is no pericardial effusion. <Conclusion> There is borderline concentric left ventricular hypertrophy. Left ventricle systolic function is normal. The Ejection Fraction is 65-70%. Transmitral Doppler flow pattern is Grade I-abnormal relaxation pattern.
[2017-10-09 14:04] VITALS: BP 128/66; PULSE 83; TEMP 98.2; O2SAT 97
== END 2017-10-09 14:02 | disposition short-term general hospital (02) ==
LOC: C.ER 12:41 → C.9E 15:44 → UNDOADMOB 15:44 → UNDODISOB 10-09 14:02
DX: I16.0 Hypertensive urgency (principal); M19.90 Unspecified osteoarthritis, unspecified site; E11.22 Type 2 diabetes mellitus with diabetic chronic kidney disease; N18.9 Chronic kidney disease, unspecified; Z87.442 Personal history of urinary calculi; E78.5 Hyperlipidemia, unspecified; Z82.49 Family history of ischemic heart disease and other diseases of the circulatory system; Z88.8 Allergy status to other drugs, medicaments and biological substances; E87.6 Hypokalemia; I13.10 Hypertensive heart and chronic kidney disease without heart failure, with stage 1 through stage 4 chronic kidney disease, or unspecified chronic kidney disease; R07.89 Other chest pain
CPT/HCPCS: 70450; 71045; 80053; 80061; 80324; 80345; 80346; 80349; 80353; 80358; 80361; 81001; 82550; 82553; 83036; 83735; 83992; 84100; 84443; 84484; 85025; 85610; 85730; 93005; 93306; 96372; 96374; G0378; J0360; J1650

== ENCOUNTER 2017-10-22 09:23 | Day surgery (SDC) | payer MEDICAID ==
[2017-10-22] MEDS ORDERED: Midazolam 2 MG/2 ML VIAL ONE (10:27)
[2017-10-22] MEDS ORDERED: Propofol 10 mg/ml Inj (20 ML) ONE ×2 (10:27→10:44)
[2017-10-22 11:31] VITALS: TEMP 97.1
[2017-10-22 12:33] VITALS: BP 142/72; PULSE 73; RESP 18; O2SAT 97
== END 2017-10-22 12:25 | disposition home or self-care (01) ==
LOC: C.ENDO 09:23
PROVIDERS: ATTEND Internal Medicine
DX: K31.89 Other diseases of stomach and duodenum (principal); K82.9 Disease of gallbladder, unspecified
CPT/HCPCS: 43231; 88305; J2001; J2250; J2704; J3010